=== PATIENT | female | born 1940 | race Caucasian/White ===

== ENCOUNTER → 2017-01-06 | Outpatient (CLI) | payer MEDICARE, OTHER ==
[2016-12-30 13:41] VITALS: BP 169/82
[~2017-01-06] MED LIST: CLIN300C86 PO
--- NOTE | 2017-01-06 15:42 | RAD ---
Bilateral lower extremity arterial ultrasound with VITALY measurements, 01/06/2017: History: Leg pain with nonhealing wound Duplex evaluation of the major arteries in both lower extremities was performed including grayscale, color-flow and spectral Doppler analysis. There are are moderate scattered atherosclerotic plaques bilaterally, some of which are calcified. These are most prominent in the superficial femoral arteries. On the right, the common femoral Doppler waveform is triphasic. Velocity accelerations are present in the mid right superficial femoral artery up to 184 cm/s and in the distal right superficial femoral artery up to 192 cm/s. The findings suggest moderate stenoses at these levels. The distal right superficial femoral and popliteal Doppler waveforms are biphasic. Patent posterior tibial, anterior tibial and peroneal arteries are present in the right lower leg demonstrating biphasic and triphasic Doppler waveforms. The right dorsalis pedis artery is patent with a monophasic Doppler waveform. A normal resting VITALY measurement of 1.01 was obtained on the right. On the left, the common femoral Doppler waveform is triphasic, however, of lower amplitude than on the right. The left superficial femoral Doppler waveforms are all monophasic and dampened. A focal high-grade stenosis was not identified. The left popliteal Doppler waveform is dampened and monophasic. Patent posterior tibial, peroneal and anterior tibial arteries are present in the left lower leg demonstrating monophasic Doppler waveforms. A similar abnormal monophasic waveform is present in the left dorsalis pedis artery. The left resting and VITALY measurement of 0.84 is mildly decreased. IMPRESSION: 1. Moderate atherosclerotic plaquing in both lower extremities. 2. Degradation of the Doppler waveforms at and distal to the superficial femoral artery level on the left, although no focal high-grade stenosis was identified. 3. Mildly decreased left resting VITALY measurement of 0.84. 4. Moderate stenoses in the right superficial femoral artery without significant degradation of the right lower leg Doppler waveforms. 5. Mild degradation of the right dorsalis pedis Doppler waveform. 6. Normal right resting VITALY measurement of 1.01.
--- NOTE | 2017-01-06 15:46 | RAD ---
Left foot, 3 views, 01/06/2017: History: Nonhealing ulcer There is severe patchy bony demineralization. No acute fracture or definite bone destruction is seen. There are mild scattered degenerative changes. Mild cortical irregularity along the medial aspect of the first metatarsal head is probably on a degenerative basis. Arterial calcifications are present. IMPRESSION: 1. Demineralization. 2. No acute bony abnormality is detected.
== END | disposition home or self-care (01) ==
LOC: US 13:36
PROVIDERS: ATTEND Emergency Medicine Undersea and Hyperbaric Medicine
DX: L97.929 Non-pressure chronic ulcer of unspecified part of left lower leg with unspecified severity (principal); L97.919 Non-pressure chronic ulcer of unspecified part of right lower leg with unspecified severity; M79.605 Pain in left leg; M79.604 Pain in right leg
CPT/HCPCS: 73630; 93922; 93925

== ENCOUNTER → 2017-02-17 | Outpatient (CLI) | payer MEDICARE, OTHER ==
[2017-01-12 14:40] VITALS: BP 151/82
== END | disposition home or self-care (01) ==
LOC: PMGWOUND 13:44
PROVIDERS: ATTEND Emergency Medicine Undersea and Hyperbaric Medicine
DX: E11.621 Type 2 diabetes mellitus with foot ulcer (principal); L97.422 Non-pressure chronic ulcer of left heel and midfoot with fat layer exposed; E11.622 Type 2 diabetes mellitus with other skin ulcer; L97.321 Non-pressure chronic ulcer of left ankle limited to breakdown of skin; I10 Essential (primary) hypertension; J44.9 Chronic obstructive pulmonary disease, unspecified; F41.9 Anxiety disorder, unspecified; F17.210 Nicotine dependence, cigarettes, uncomplicated; Z86.73 Personal history of transient ischemic attack (TIA), and cerebral infarction without residual deficits
CPT/HCPCS: 11042; 97597

== ENCOUNTER → 2017-03-03 | Outpatient (CLI) | payer MEDICARE, OTHER ==
[2017-01-12 14:40] VITALS: BP 151/82
[2017-03-03 16:05] LABS: BASO # 0.1 x10^3/uL (0.0-0.2); BASO % 1 % (0-3); EOS % 5 % (0-3); HEMATOCRIT 40.5 % (36.0-47.0); HEMOGLOBIN 13.5 g/dL (12.0-15.5); LYMPH # 1.6 x10^3/uL (1.0-4.8); LYMPH % 20 % (24-48); MEAN CORPUSCULAR HEMOGLOBIN 32 pg (25-35); MEAN CORPUSCULAR HGB CONC 33 g/dL (31-37); MEAN CORPUSCULAR VOLUME 96 fL (79-100); MONO % 8 % (0-9); NEUT % 65 % (31-73); PLATELET COUNT 340 x10^3/uL (140-400); RED CELL DISTRIBUTION WIDTH 14.9 % (11.5-14.5); WHITE BLOOD COUNT 7.8 x10^3/uL (4.0-11.0)
[2017-03-03 16:15] LABS: C-REACTIVE PROTEIN 2.1 mg/L (0-3.3); CALCIUM 9.1 mg/dL (8.5-10.1); CREATININE 0.9 mg/dL (0.6-1.0); GFR 60.9; POTASSIUM 4.6 mmol/L (3.5-5.1)
== END | disposition home or self-care (01) ==
LOC: LAB 15:15
PROVIDERS: ATTEND Emergency Medicine Undersea and Hyperbaric Medicine
DX: L97.523 Non-pressure chronic ulcer of other part of left foot with necrosis of muscle (principal)
CPT/HCPCS: 36415; 80048; 83036; 85027; 85651; 86140

== ENCOUNTER → 2017-03-03 | Outpatient (CLI) | payer MEDICARE, OTHER ==
[2017-01-12 14:40] VITALS: BP 151/82
== END | disposition home or self-care (01) ==
LOC: PMGWOUND 14:18
PROVIDERS: ATTEND Emergency Medicine Undersea and Hyperbaric Medicine
DX: E11.621 Type 2 diabetes mellitus with foot ulcer (principal); L97.513 Non-pressure chronic ulcer of other part of right foot with necrosis of muscle; L97.523 Non-pressure chronic ulcer of other part of left foot with necrosis of muscle; E11.622 Type 2 diabetes mellitus with other skin ulcer; I70.243 Atherosclerosis of native arteries of left leg with ulceration of ankle; L97.321 Non-pressure chronic ulcer of left ankle limited to breakdown of skin; I10 Essential (primary) hypertension; J44.9 Chronic obstructive pulmonary disease, unspecified; F41.9 Anxiety disorder, unspecified; F17.210 Nicotine dependence, cigarettes, uncomplicated; Z86.73 Personal history of transient ischemic attack (TIA), and cerebral infarction without residual deficits
CPT/HCPCS: 11042; 97597

== ENCOUNTER → 2017-03-04 | Outpatient (CLI) | payer MEDICARE, OTHER ==
[2017-01-12 14:40] VITALS: BP 151/82
[~2017-03-04] MED LIST changes: +CONTRAST GIVEN MC PRN; +IOHEXOL 300 MG/ML 75 ML VIAL IV ONE
--- NOTE | 2017-03-05 10:31 | RAD ---
CT of the left foot without contrast, 03/04/2017: History: Foot wound at bunion level No IV contrast was administered for this study due to difficulties with venous access. The patient refused to allow further attempts at IV access. Multiplanar reconstructions were produced. There is patchy bony demineralization. There is a cortical defect in the medial aspect of the first metatarsal head. Some of this margins are sclerotic while others are less clearly defined. There is a nearby skin wound containing gas. There are also gas bubbles in the soft tissues along the dorsal aspect of the first metatarsal head and the first MTP joint. There is generalized increased density in the periarticular soft tissues at the first MTP joint level. There is streaky subcutaneous edema throughout the foot. There is a moderate hallux valgus deformity with degenerative changes at the first MTP joint. There are mild scattered degenerative changes at interphalangeal joints and at the midfoot level. No other definite bone destruction is seen. IMPRESSION: 1. Moderate hallux valgus deformity with degenerative change at the first MTP joint. 2. Soft tissue wound along the medial aspect of the first metatarsal head with periarticular gas bubbles and soft tissue thickening compatible with cellulitis. 3. Cortical defect along the medial aspect of the first metatarsal head which is probably on an arthritic basis, although early osteomyelitis cannot be excluded. PQRS Compliance Statement: One or more of the following individualized dose reduction techniques were utilized for this examination: 1. Automated exposure control 2. Adjustment of the mA and/or kV according to patient size 3. Use of iterative reconstruction technique
== END | disposition home or self-care (01) ==
LOC: CT 14:28
PROVIDERS: ATTEND Emergency Medicine Undersea and Hyperbaric Medicine
DX: S91.302A Unspecified open wound, left foot, initial encounter (principal); W19.XXXA Unspecified fall, initial encounter; Y93.89 Activity, other specified; Y92.89 Other specified places as the place of occurrence of the external cause; Y99.8 Other external cause status
CPT/HCPCS: 73700

== ENCOUNTER 2017-04-07 10:17 | Inpatient (IN) | payer MEDICARE, OTHER ==
[2017-04-07] VITALS (12 sets, daily range): BP systolic 130–196; BP diastolic 59–96
[~2017-04-07] VITALS: Ht 144.8 cm; Wt 50.2 kg
[~2017-04-07 10:17] MED LIST changes: +CLIN300C8 PO; -CLIN300C86 PO; -CONTRAST GIVEN MC PRN; -IOHEXOL 300 MG/ML 75 ML VIAL IV ONE
[2017-04-07 11:27] LABS: BASO # 0.1 x10^3/uL (0.0-0.2); BASO % 1 % (0-3); EOS % 5 % (0-3); HEMATOCRIT 33.4 % (36.0-47.0); HEMOGLOBIN 11.1 g/dL (12.0-15.5); LYMPH # 1.3 x10^3/uL (1.0-4.8); LYMPH % 18 % (24-48); MEAN CORPUSCULAR HEMOGLOBIN 32 pg (25-35); MEAN CORPUSCULAR HGB CONC 33 g/dL (31-37); MEAN CORPUSCULAR VOLUME 96 fL (79-100); MONO % 9 % (0-9); NEUT % 68 % (31-73); PLATELET COUNT 265 x10^3/uL (140-400); RED BLOOD COUNT 3.47 x10^6/uL (3.50-5.40); RED CELL DISTRIBUTION WIDTH 14.4 % (11.5-14.5); WHITE BLOOD COUNT 7.5 x10^3/uL (4.0-11.0)
[2017-04-07] MEDS ORDERED: CLIN300C3 PO (11:34)
[2017-04-07] MEDS ORDERED: LISI10TA2 PO (11:34)
[2017-04-07] MEDS ORDERED: ALBU2.5V14 NEB (11:34)
[2017-04-07] MEDS ORDERED: SIME80TA14 PO (11:34)
[2017-04-07] MEDS ORDERED: BECL8.7A6 IH (11:34)
[2017-04-07] MEDS ORDERED: DOCU100C28 PO (11:34)
[2017-04-07] MEDS ORDERED: LANS30CA66 PO (11:34)
[2017-04-07] MEDS ORDERED: PROC10TA57 PO (11:34)
[2017-04-07] MEDS ORDERED: METO25TA9 PO (11:34)
[2017-04-07] MEDS ORDERED: IPRA4AER IH (11:34)
[2017-04-07] MEDS ORDERED: DIAZ5TAB4 PO (11:34)
[2017-04-07] MEDS ORDERED: ASPI-482 PO (11:34)
[2017-04-07] MEDS ORDERED: OXYC1TAB9 PO (11:34)
[2017-04-07 11:36] LABS: PROTHROMBIN TIME PATIENT 12.5 SEC (11.7-14.0)
[2017-04-07 11:40] LABS: CALCIUM 8.5 mg/dL (8.5-10.1); CREATININE 0.8 mg/dL (0.6-1.0); GFR 69.7; POTASSIUM 4.1 mmol/L (3.5-5.1)
[2017-04-07] MEDS ORDERED: LIDOCAINE 2% 20 ML VIAL. ONE (12:26)
[2017-04-07] MEDS ORDERED: IODIXANOL 320 MG/ML 100 ML VIAL. ONE (12:27)
[2017-04-07] MEDS ORDERED: fentaNYL PF VIAL 100 MCG/2 ML VIAL ONE ×2 (12:38→13:19)
[2017-04-07] MEDS ORDERED: MIDAZOLAM HCL/PF 2 MG/2 ML VIAL. ONE ×3 (12:38→14:06)
[2017-04-07] MEDS ORDERED: fentaNYL PF VIAL 100 MCG/2 ML VIAL IV ONE ×2 (13:00→14:45)
[2017-04-07] MEDS ORDERED: NITROGLYCERIN 4 MG/20 ML SYRINGE for CATH LAB. ONE ×2 (13:00→13:16)
[2017-04-07] MEDS ORDERED: CONTRAST GIVEN MC PRN (13:00)
[2017-04-07] MEDS ORDERED: LIDOCAINE 2% 20 ML VIAL. IJ ONE (13:00)
[2017-04-07] MEDS ORDERED: MIDAZOLAM HCL/PF 2 MG/2 ML VIAL. IV ONE (13:00)
[2017-04-07] MEDS ORDERED: IODIXANOL 320 MG/ML 100 ML VIAL. IART ONE (13:00)
[2017-04-07] MEDS ORDERED: HEPARIN for IV BOLUS 10,000 UNIT/10 ML VIAL. ONE (13:08)
[2017-04-07] MEDS ORDERED: dilTIAZem IV PUSH 25 MG/5 ML VIAL ONE (13:16)
[2017-04-07] MEDS ORDERED: NITROGLYCERIN 200 MCG/2 ML SYRINGE FOR CATH/VASC LAB. IART ONE (13:30)
[2017-04-07] MEDS ORDERED: HEPARIN for IV BOLUS 10,000 UNIT/10 ML VIAL. IV ONE (13:45)
--- NOTE | 2017-04-07 14:42 | PDOC ---
MODERATE SEDATION ASSESSMENT RISKS/ALTERNATIVES Risks/Alternatives Risks and alternatives of this type of sedation and procedure discussed with: RISK/ALTERNATIVES: Patient H & P ON CHART H & P H & P on chart and reviewed for co-morbid conditions and appropriate labs. H&P ON CHART: Yes STATUS PREG STATUS ASSESSED: N/A MEDS/ALLERGIES REVIEWED Meds/Allergies Reviewed Medications and Allergies including time and route of recently administered narcotics and sedatives. MEDS/ALLERGIES REVIEWED: Yes ASA RATING ASA RATING: II AIRWAY ASSESSMENT Airway Assessment Airway patency, oral function limitations, presence of caps, crowns, dentures, partials, and ability to extend neck assessed. AIRWAY ASSESSMENT: Yes MALLAMPATI SCORE MALLAMPATI SCORE: II PRE-SEDATION ASSESSMENT PRE-SEDATION ASSESSMENT: Yes BHAVIK DUNCAN MD April 07, 2017 14:42
[2017-04-07] MEDS ORDERED: CLOPIDOGREL BISULFATE 75 MG TABLET ONE (14:44)
[2017-04-07] MEDS ORDERED: ACETAMINOPHEN 325 MG TABLET. PO PRN (14:45)
[2017-04-07] MEDS ORDERED: NITROGLYCERIN SUBLINGUAL 0.4 MG BOTTLE OF 25. SL PRN (14:45)
[2017-04-07] MEDS ORDERED: CLOPIDOGREL BISULFATE 75 MG TABLET PO ONE (14:45)
[2017-04-07] MEDS ORDERED: hydrALAZINE 20 MG/ML VIAL. IVP PRN (16:15)
[2017-04-07] MEDS ORDERED: SIMETHICONE 80 MG TAB.CHEW PO PRN (16:15)
[2017-04-07] MEDS: MORPHINE SULFATE 2 MG/ML DISP.SYRIN. IV PRN (16:18)
[2017-04-07] MEDS: IV 1/2 NORMAL SALINE 1,000 ML IV SCH ×2 (16:21→22:55)
[2017-04-07] MEDS ORDERED: NON FORMULARY ITEM (Albuterol Sulfate (Albuterol Sulfate Conc Neb Soln) 1 VIAL) NEB SCH (18:00)
[2017-04-07] MEDS: ONDANSETRON PF 4 MG/2 ML VIAL. IV PRN (18:00)
[2017-04-07] MEDS: MORPHINE SULFATE 4 MG/ML DISP.SYRIN. IV PRN (18:52)
[2017-04-07] MEDS: ALBUTEROL SULFATE 2.5 MG/3 ML NEBU. NEB SCH ×2 (20:00→20:10)
[2017-04-07] MEDS: METOPROLOL SUCC 24HR ER 25 MG TAB.ER.24H. PO SCH (22:54)
[2017-04-07] MEDS: diazePAM 5 MG TABLET PO SCH (22:55)
[2017-04-07] MEDS: oxyCODONE/APAP 10/325 1 TAB TABLET PO SCH (22:56)
[2017-04-08] VITALS (7 sets, daily range): BP systolic 111–178; BP diastolic 53–75
[2017-04-08 04:36] LABS: CALCIUM 8.2 mg/dL (8.5-10.1); CREATININE 0.8 mg/dL (0.6-1.0); GFR 69.7; POTASSIUM 4.1 mmol/L (3.5-5.1)
[2017-04-08] MEDS: PANTOPRAZOLE 40 MG TABLET.DR. PO SCH (06:47)
[2017-04-08] MEDS: oxyCODONE/APAP 10/325 1 TAB TABLET PO SCH ×4 (06:49→12:55)
[2017-04-08] MEDS ORDERED: CLOPIDOGREL BISULFATE 75 MG TABLET PO SCH (08:00)
[2017-04-08] MEDS: ALBUTEROL SULFATE 2.5 MG/3 ML NEBU. NEB SCH ×2 (08:29→12:00)
[2017-04-08] MEDS ORDERED: LISINOPRIL 10 MG TABLET PO SCH ×2 (09:00→21:00)
[2017-04-08] MEDS ORDERED: DOCUSATE SODIUM 100 MG CAPSULE. PO SCH ×2 (09:00→21:00)
[2017-04-08] MEDS ORDERED: ASPIRIN ENTERIC COATED 81 MG TABLET.DR. PO SCH ×2 (09:00→21:00)
[2017-04-08] MEDS: METOPROLOL SUCC 24HR ER 25 MG TAB.ER.24H. PO SCH (09:08)
[2017-04-08] MEDS: diazePAM 5 MG TABLET PO SCH ×3 (09:08→21:25)
[2017-04-08] MEDS: MORPHINE SULFATE 2 MG/ML DISP.SYRIN. IV PRN ×2 (09:10→18:32)
[2017-04-08] MEDS: ONDANSETRON PF 4 MG/2 ML VIAL. IV PRN (09:52)
[2017-04-08] MEDS: IV 1/2 NORMAL SALINE 1,000 ML IV SCH (11:00)
--- NOTE | 2017-04-08 11:03 | PDOC ---
CARDIO Progress Notes Date and Time Date of Service 04/08/2017 Time of Evaluation 1000 Subjective Subjective: No Chest Pain, No shortness of breath, No Palpitations, No Dizziness, Other (coughing more productive yellowish, intermittent nausea) Vitals Vitals Vital Signs Date Time Temp Pulse Resp B/P (MAP) Pulse Ox O2 Delivery O2 Flow Rate FiO2 04/08/17 09:40 18 Nasal Cannula 2.0 04/08/17 09:08 77 136/60 04/08/17 08:31 96 04/08/17 07:00 98.3 98.3 Weight Weight [ ] Input and Output Intake and Output Intake and Output 04/08/17 07:00 Output Total 0 ml Balance 0 ml Output Urine Total 0 ml # Voids 3 Laboratory Labs Laboratory Tests Test 04/07/17 11:20 04/08/17 03:50 White Blood Count 7.5 x10^3/uL (4.0-11.0) Red Blood Count 3.47 x10^6/uL (3.50-5.40) Hemoglobin 11.1 g/dL (12.0-15.5) Hematocrit 33.4 % (36.0-47.0) Mean Corpuscular Volume 96 fL (79-100) Mean Corpuscular Hemoglobin 32 pg (25-35) Mean Corpuscular Hemoglobin Concent 33 g/dL (31-37) Red Cell Distribution Width 14.4 % (11.5-14.5) Platelet Count 265 x10^3/uL (140-400) Neutrophils (%) (Auto) 68 % (31-73) Lymphocytes (%) (Auto) 18 % (24-48) Monocytes (%) (Auto) 9 % (0-9) Eosinophils (%) (Auto) 5 % (0-3) Basophils (%) (Auto) 1 % (0-3) Neutrophils # (Auto) 5.1 x10^3uL (1.8-7.7) Lymphocytes # (Auto) 1.3 x10^3/uL (1.0-4.8) Monocytes # (Auto) 0.6 x10^3/uL (0.0-1.1) Eosinophils # (Auto) 0.4 x10^3/uL (0.0-0.7) Basophils # (Auto) 0.1 x10^3/uL (0.0-0.2) Prothrombin Time 12.5 SEC (11.7-14.0) Prothromb Time International Ratio 1.0 (0.8-1.1) Sodium Level 127 mmol/L (136-145) 128 mmol/L (136-145) Potassium Level 4.1 mmol/L (3.5-5.1) 4.1 mmol/L (3.5-5.1) Chloride Level 94 mmol/L (98-107) 94 mmol/L (98-107) Carbon Dioxide Level 25 mmol/L (21-32) 25 mmol/L (21-32) Anion Gap 8 (6-14) 9 (6-14) Blood Urea Nitrogen 17 mg/dL (7-20) 12 mg/dL (7-20) Creatinine 0.8 mg/dL (0.6-1.0) 0.8 mg/dL (0.6-1.0) Estimated GFR (Cockcroft-Gault) 69.7 69.7 Glucose Level 86 mg/dL (70-99) 80 mg/dL (70-99) Calcium Level 8.5 mg/dL (8.5-10.1) 8.2 mg/dL (8.5-10.1) Physical Exam HEENT: Neck Supple W Full Motion Chest: Symmetric LUNGS: Other Heart: S1S2, RRR (SR) Abdomen: Soft N/T Extremities: No Edema, No Calf Tenderness Neurology: alert, oriented, follow commands Other Exams right groin arteriotomy site intact, no swelling or erythema. Neurovascular status intact Assessment Assessment 1. PAD: S/P multivessel CHEMICAL TECHNICIAN/stent to LLE, final report pending. Stable, tolerated procedure well. 2. GERD: likely exacerbated by sipped meals. 3. COPD: since 1996, home O2 at hs. Presently with diffuse wheeze, does not follow any pulmonary, managed by outpt PCP 4. Hyponatremia: Na 128 Recommendations 1. Restart home breathing treatments, and will monitor today 2. Will ensure PO status and food tolerance 3. Pt guaranteed ex to stay with her when discharge to home 4. If nausea and wheezing improved by this afternoon then will anticipate DC today otherwise tomorrow. 5. PCXR today, DAPT 6. Start on PPI and secondary prevention 7. Consult pulmonary 8. 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
[2017-04-08] MEDS ORDERED: PANTOPRAZOLE 40 MG TABLET.DR. PO SCH (11:30)
[2017-04-08] MEDS: IPRATRPIUM/ALBUTEROL 0.5/2.5MG 3 ML NEBU. NEB SCH ×3 (11:58→20:14)
[2017-04-08] MEDS ORDERED: AZITHROMYCIN 250 MG TABLET. PO ONE (12:30)
--- NOTE | 2017-04-08 12:30 | CONS ---
DATE OF CONSULTATION: ATTENDING PHYSICIAN: Dr. Casas. REASON FOR CONSULTATION: COPD. HISTORY OF PRESENT ILLNESS: The patient is a pleasant 76-year-old female who has been a smoker from age 15 until now. She smokes 1 pack which would last 3 days. She was hospitalized for peripheral vascular disease and had stents to left lower extremity. I have been asked to see her for evaluation of her COPD. The patient states she has been coughing up yellow sputum. No fever, no chills. She states she always feels cold. She denies any significant exertional dyspnea. She uses oxygen 2 liters at night time, but none during the day. No chest pains. No history of pulmonary embolism. There is no chest x-ray done yet. I have been asked to see her for further evaluation. PAST MEDICAL HISTORY: History of COPD, unknown FEV1, could be severe with ongoing tobaccoism. PAST SURGICAL HISTORY: Recent multiple stents to the left lower extremity. REVIEW OF SYSTEMS: Twelve-point system obtained. Pertinent positives discussed in my history of present illness, otherwise noncontributory. All systems that were negative were reviewed as well. ALLERGIES: MULTIPLE ANTIBIOTICS, INCLUDING CEPHALOSPORIN, CEPHALEXIN, CIPRO AND ALSO DIPHENHYDRAMINE, KETOROLAC, LEVOFLOXACIN, MUSHROOMS, PROPOXYPHENE AND . SOCIAL HISTORY: Smoking since age 15, 1 pack would last 3 days. PHYSICAL EXAMINATION: VITAL SIGNS: Stable, afebrile, pulse ox 95% on room air. NECK: Supple. LUNGS: Diminished breath sounds posteriorly, anterior wheezing. CARDIOVASCULAR: Regular rate and rhythm. ABDOMEN: Soft. EXTREMITIES: With no pitting edema. LABORATORY DATA: Reviewed. White cell count 7.5, hemoglobin 11.1, platelets are 265, BUN 12, creatinine 0.8. IMPRESSION: 1. Mild chronic obstructive pulmonary disease exacerbation in a patient who has smoked since age 15 and still smokes. 2. Acute bronchitis. We will need a chest x-ray to rule out any definite pneumonia. 3. Mild hyponatremia, we will clinically follow. 4. Peripheral vascular disease, status post multiple stents to the left lower extremity. RECOMMENDATIONS: 1. Continue DuoNeb. 2. Continue with Pulmicort. She takes QVAR at home, which is not available in the hospital. 3. Add empiric antibiotic, Zithromax. That really works well for her. 4. Follow chest x-ray and any abnormalities will be evaluated. 5. Monitor sodium level. 6. Follow Cardiology recommendation. 7. Discussed with RN. We will follow along with you. VINEET ANDERSON MD DR: KRISHNA/gogo JOB#: [id number] / [id number] TONIO
[2017-04-08] MEDS ORDERED: NON FORMULARY ITEM (Ipratropium/Albuterol Sulfate (Combivent Respimat Inhal) 2 INH) IH SCH (13:00)
[2017-04-08 13:07] LABS: CALCIUM 8.5 mg/dL (8.5-10.1); CREATININE 0.7 mg/dL (0.6-1.0); GFR 81.4; POTASSIUM 4.3 mmol/L (3.5-5.1)
--- NOTE | 2017-04-08 13:16 | RAD ---
Indication wheezing. Cough. A single view of the chest was obtained. Comparison is made to an examination 10/07/2013. There is mild cardiomegaly similar to the previous exam. There is perhaps very slight pulmonary vascular congestion. Retrocardiac air likely reflects a hiatus hernia. Kyphoplasty changes are noted in the lower thoracic spine. A consolidated pneumonia is not seen. IMPRESSION: Mild enlargement of the cardiac silhouette. Suspect very mild pulmonary vascular congestion. Probable hiatus hernia. No focal consolidated pneumonia seen
[2017-04-08] MEDS ORDERED: FUROSEMIDE 40 MG/4 ML VIAL. IVP ONE (14:00)
[2017-04-08] MEDS ORDERED: oxyCODONE/APAP 10/325 1 TAB TABLET PO PRN (14:00)
[2017-04-08] MEDS ORDERED: ALBUTEROL SULFATE 2.5 MG/3 ML NEBU. NEB PRN (18:00)
[2017-04-08] MEDS: BUDESONIDE 0.5 MG/2 ML NEBU. NEB SCH (20:14)
[2017-04-08] MEDS ORDERED: BECLOMETHASONE DIPROPIONATE IH SCH (21:00)
[2017-04-08] MEDS: METOPROLOL TART IMMED RELEASE 25 MG TABLET. PO SCH (21:25)
[2017-04-08] MEDS: MORPHINE SULFATE 4 MG/ML DISP.SYRIN. IV PRN (23:24)
[2017-04-09 03:11] VITALS: BP 124/62
[2017-04-09] MEDS: MORPHINE SULFATE 4 MG/ML DISP.SYRIN. IV PRN (06:31)
[2017-04-09] MEDS: BUDESONIDE 0.5 MG/2 ML NEBU. NEB SCH (06:35)
[2017-04-09] MEDS: IPRATRPIUM/ALBUTEROL 0.5/2.5MG 3 ML NEBU. NEB SCH (06:35)
[2017-04-09 07:00] VITALS: BP 124/59
[2017-04-09] MEDS ORDERED: AZITHROMYCIN 250 MG TABLET. PO SCH (09:00)
[2017-04-09] MEDS: diazePAM 5 MG TABLET PO SCH (09:06)
[2017-04-09] MEDS: PANTOPRAZOLE 40 MG TABLET.DR. PO SCH (09:07)
[2017-04-09] MEDS: METOPROLOL TART IMMED RELEASE 25 MG TABLET. PO SCH (09:07)
[2017-04-09] MEDS ORDERED: CLOP75TA PO (09:44)
[2017-04-09] MEDS ORDERED: CLOPIDOGREL BISULFATE 75 MG TABLET PO SCH (09:45)
--- NOTE | 2017-04-09 09:47 | PDOC3 ---
TARUN ORNELAS OCEAN IMPORT REPRESENTATIVE 04/09/17 0947: Discharge Summary Visit Information Date of Admission: April 07, 2017 Date of Discharge: Apr 09, 2017 Admitting Diagnosis Comment: 1. PAD with non-healing left foot wounds 2. HTN, benign essential 3. COPD 4. tobacco abuse Final Diagnosis 1. PAD with non-healing left foot wounds 2. HTN, benign essential 3. COPD with acute bronchitis 4. tobacco abuse 5. hyponatremia 6. CHF, acute, mild, LV function undocumented Brief Hospital Course Allergies Allergies Coded Allergies Type Severity Reaction Last Updated Verified Cephalosporins Allergy Severe Anaphylaxis 04/07/17 Yes propoxyphene Allergy Severe Anaphylaxis 04/08/17 Yes cephalexin Allergy Intermediate Itching 04/08/17 Yes ciprofloxacin Allergy Intermediate 04/08/17 Yes ketorolac Allergy Intermediate 04/08/17 Yes levofloxacin Allergy Intermediate 04/08/17 Yes mushroom Allergy Intermediate Itching 04/08/17 Yes sumatriptan Allergy Intermediate 04/08/17 Yes diphenhydramine Allergy Mild Anxiety 04/08/17 Yes Vital Signs Vital Signs Date Time Temp Pulse Resp B/P (MAP) Pulse Ox O2 Delivery O2 Flow Rate FiO2 04/09/17 09:07 72 124/59 04/09/17 09:02 Room Air 04/09/17 07:00 98.5 20 95 2.0 98.5 Lab Results Laboratory Tests Test 04/07/17 11:20 04/08/17 03:50 04/08/17 12:45 White Blood Count 7.5 x10^3/uL (4.0-11.0) Red Blood Count 3.47 x10^6/uL (3.50-5.40) Hemoglobin 11.1 g/dL (12.0-15.5) Hematocrit 33.4 % (36.0-47.0) Mean Corpuscular Volume 96 fL (79-100) Mean Corpuscular Hemoglobin 32 pg (25-35) Mean Corpuscular Hemoglobin Concent 33 g/dL (31-37) Red Cell Distribution Width 14.4 % (11.5-14.5) Platelet Count 265 x10^3/uL (140-400) Neutrophils (%) (Auto) 68 % (31-73) Lymphocytes (%) (Auto) 18 % (24-48) Monocytes (%) (Auto) 9 % (0-9) Eosinophils (%) (Auto) 5 % (0-3) Basophils (%) (Auto) 1 % (0-3) Neutrophils # (Auto) 5.1 x10^3uL (1.8-7.7) Lymphocytes # (Auto) 1.3 x10^3/uL (1.0-4.8) Monocytes # (Auto) 0.6 x10^3/uL (0.0-1.1) Eosinophils # (Auto) 0.4 x10^3/uL (0.0-0.7) Basophils # (Auto) 0.1 x10^3/uL (0.0-0.2) Prothrombin Time 12.5 SEC (11.7-14.0) Prothromb Time International Ratio 1.0 (0.8-1.1) Sodium Level 127 mmol/L (136-145) 128 mmol/L (136-145) 124 mmol/L (136-145) Potassium Level 4.1 mmol/L (3.5-5.1) 4.1 mmol/L (3.5-5.1) 4.3 mmol/L (3.5-5.1) Chloride Level 94 mmol/L (98-107) 94 mmol/L (98-107) 91 mmol/L (98-107) Carbon Dioxide Level 25 mmol/L (21-32) 25 mmol/L (21-32) 25 mmol/L (21-32) Anion Gap 8 (6-14) 9 (6-14) 8 (6-14) Blood Urea Nitrogen 17 mg/dL (7-20) 12 mg/dL (7-20) 13 mg/dL (7-20) Creatinine 0.8 mg/dL (0.6-1.0) 0.8 mg/dL (0.6-1.0) 0.7 mg/dL (0.6-1.0) Estimated GFR (Cockcroft-Gault) 69.7 69.7 81.4 Glucose Level 86 mg/dL (70-99) 80 mg/dL (70-99) 80 mg/dL (70-99) Calcium Level 8.5 mg/dL (8.5-10.1) 8.2 mg/dL (8.5-10.1) 8.5 mg/dL (8.5-10.1) TM-Ews-V-Type Natriuretic Peptide 1312 pg/mL (0-449) Laboratory Tests Test 04/08/17 12:45 Sodium Level 124 mmol/L (136-145) Potassium Level 4.3 mmol/L (3.5-5.1) Chloride Level 91 mmol/L (98-107) Carbon Dioxide Level 25 mmol/L (21-32) Anion Gap 8 (6-14) Blood Urea Nitrogen 13 mg/dL (7-20) Creatinine 0.7 mg/dL (0.6-1.0) Estimated GFR (Cockcroft-Gault) 81.4 Glucose Level 80 mg/dL (70-99) Calcium Level 8.5 mg/dL (8.5-10.1) RJ-Uus-X-Type Natriuretic Peptide 1312 pg/mL (0-449) Brief Hospital Course Ms. Michele is a 76 old female previous evaluated in the office for PAD with non -healing wounds of the left foot and a need to undergo bunionectomy with podiatry. Bilateral arterial Duplex had demonstrated at least moderate bilateral disease. Abdominal aortogram with run-off was advised for further evaluation and this was completed 04/07/2017. See procedure report for details. DAPT until seen in the office. Discharge delayed 24 hours to address acute bronchitis with pulmonary consult with Dr. Erickson Giles. CXR demonstrated mild pulmonary vascular congestion, however, patient declined IV furosemide and further evaluation with echocardiogram. CXR did not demonstrate pneumonia. No events overnight and patient reports breathing at baseline status. Hyponatremic at about 124 - follow up with PCP recommended. Discharge Information Condition at Discharge: Stable Follow Up: Weeks ([address] Duncan; Dr. Montaño of podiatry as scheduled ; PCP in 7 - 10 days to address hyponatremia) Disposition/Orders: D/C to Home (patient has both day and night time assistance through an agency) Scheduled Albuterol Sulfate (Albuterol Sulfate Conc Neb Soln), 1 VIAL NEB Q6HRS, (Reported ) Aspirin (Aspir 81), 1 TAB PO DAILY, (Reported) Azithromycin (Zithromax), 250 MG PO DAILY, (Reported) Beclomethasone Dipropionate (Qvar 80MCG Inhaler), 2 PUFF IH BID, (Reported) Clopidogrel Bisulfate (Clopidogrel), 1 TAB PO DAILY Diazepam (Diazepam), 5 MG PO TID, (Reported) Docusate Sodium (Docusate Sodium), 1 CAP PO DAILY, (Reported) Ipratropium/Albuterol Sulfate (Combivent Respimat Inhal), 2 INH IH QID, ( Reported) Lansoprazole (Prevacid), 1 CAP PO DAILY, (Reported) Lisinopril (Lisinopril), 1 TAB PO DAILY, (Reported) Metoprolol Succinate (Metoprolol Succinate ( Xl )), 1 TAB PO BID, (Reported) Oxycodone Hcl/Acetaminophen (Oxycodone-Acetaminophen 10-325), 1 TAB PO Q4HRS, ( Reported) Miscellaneous Medications Prochlorperazine Maleate (Compazine), 10 MG PO, (Reported) Simethicone (Simethicone), 80 MG PO, (Reported) Discontinued Medications Clindamycin Hcl (Clindamycin Hcl), 300 MG PO QID Clindamycin Hcl (Cleocin Hcl), 300 MG PO QID, (Reported) Patient Instructions Patient Instructions GENERAL INSTRUCTIONS: 1. Your dressing should be removed prior to leaving the hospital. 2. It is OK to shower the day after your procedure. 3. If you received stents, be sure to carry your stent information card with you in your wallet/purse at all times. 4. Call the office immediately at [phone] if you notice any fever or if there is redness, worsening tenderness/pain, increased bruising, or drainage from the puncture site. 5. Should you have bleeding from the site, lie down immediately & put pressure on the site. The pressure should be hard enough to stop the bleeding. Have the nearest person call 911. DO NOT try to drive to the ER with active bleeding. 6. If you notice a change in color, coolness to touch, or loss of feeling in the affected extremity, come to the emergency room. Please have someone drive you or call 911 if no one is available. DO NOT drive yourself. 7. If you normally take glucophage (metformin), please do not take this medicine for 48 hours following your procedure. 8. DO NOT STOP TAKING YOUR PLAVIX OR ASPIRIN UNLESS IT IS CLEARED BY A METAL CUT OFF SAW TENDER OF YOUR PROCUREMENT INTERNSHIP AT OUR OFFICE. 9. QUIT SMOKING: the [place] [employer], [place] [employer], & [place] [employer] have cessation resources available on their websites 10. Please have someone available to drive you home from the hospital as you may be limited by sedation medications given during the procedure. Femoral (Groin) access: 1. Do no lifting, pushing, pulling, bending, stooping, or recurrent stair climbing for 3 days following your procedure. 2. Once past the first 3 days, do not do any HEAVY exertion or lifting for one week following the procedure. No gym workouts, running, lifting greater than a gallon of milk, etc 3. Do not submerge in bath or pool for one week. OK to drive 3 days following your procedure, but if going long distance, do not go alone & take hourly breaks to get out of car and walk around. Call the office at [phone] for any questions or concerns. BHAVIK DUNCAN MD 04/10/17 1044: Discharge Summary Brief Hospital Course Brief Hospital Course Patient seen and examined 04/09/17. Agree with FIREBRICK LAYER HELPER's assessment and plan. s/p atherectomy/SENIOR CONTRACT SPECIALIST to left SFA, SENIOR CONTRACT SPECIALIST/stent to left anterior tibial and SENIOR CONTRACT SPECIALIST to left peroneal arteries for nonhealing wound left leg and severe peripheral vascular disease. Acute bronchitis improved. Patient was advised to follow-up with PCP for her hyponatremia. We will consider staged SENIOR CONTRACT SPECIALIST to right lower extremity and possibly left renal artery at a later date. Discharge Information Scheduled Albuterol Sulfate (Albuterol Sulfate Conc Neb Soln), 1 VIAL NEB Q6HRS, (Reported ) Aspirin (Aspir 81), 1 TAB PO DAILY, (Reported) Azithromycin (Zithromax), 250 MG PO DAILY, (Reported) Beclomethasone Dipropionate (Qvar 80MCG Inhaler), 2 PUFF IH BID, (Reported) Clopidogrel Bisulfate (Clopidogrel), 1 TAB PO DAILY Diazepam (Diazepam), 5 MG PO TID, (Reported) Docusate Sodium (Docusate Sodium), 1 CAP PO DAILY, (Reported) Ipratropium/Albuterol Sulfate (Combivent Respimat Inhal), 2 INH IH QID, ( Reported) Lansoprazole (Prevacid), 1 CAP PO DAILY, (Reported) Lisinopril (Lisinopril), 1 TAB PO DAILY, (Reported) Metoprolol Succinate (Metoprolol Succinate ( Xl )), 1 TAB PO BID, (Reported) Oxycodone Hcl/Acetaminophen (Oxycodone-Acetaminophen 10-325), 1 TAB PO Q4HRS, ( Reported) Miscellaneous Medications Prochlorperazine Maleate (Compazine), 10 MG PO, (Reported) Simethicone (Simethicone), 80 MG PO, (Reported) Discontinued Medications Clindamycin Hcl (Clindamycin Hcl), 300 MG PO QID Clindamycin Hcl (Cleocin Hcl), 300 MG PO QID, (Reported) TARUN ORNELAS APRN Apr 09, 2017 09:47 BHAVIK DUNCAN MD Apr 10, 2017 10:44
[2017-04-09 11:00] VITALS: BP 94/54
[2017-04-09] MEDS ORDERED: AZIT250T PO (11:13)
--- NOTE | 2017-04-09 11:24 | PDOC ---
PULMONARY PROGRESS NOTES Subjective FEELS BETTER Vitals Vital Signs Date Time Temp Pulse Resp B/P (MAP) Pulse Ox O2 Delivery O2 Flow Rate FiO2 04/09/17 09:07 72 124/59 04/09/17 09:02 Room Air 04/09/17 08:00 2.0 04/09/17 07:00 98.5 20 95 98.5 General: Alert, No acute distress Lungs: Clear Cardiovascular: S1 Abdomen: Soft Neuro Exam: Alert Extremities: No Edema Skin: Warm Labs Laboratory Tests Test 04/07/17 11:20 04/08/17 03:50 04/08/17 12:45 White Blood Count 7.5 x10^3/uL (4.0-11.0) Red Blood Count 3.47 x10^6/uL (3.50-5.40) Hemoglobin 11.1 g/dL (12.0-15.5) Hematocrit 33.4 % (36.0-47.0) Mean Corpuscular Volume 96 fL (79-100) Mean Corpuscular Hemoglobin 32 pg (25-35) Mean Corpuscular Hemoglobin Concent 33 g/dL (31-37) Red Cell Distribution Width 14.4 % (11.5-14.5) Platelet Count 265 x10^3/uL (140-400) Neutrophils (%) (Auto) 68 % (31-73) Lymphocytes (%) (Auto) 18 % (24-48) Monocytes (%) (Auto) 9 % (0-9) Eosinophils (%) (Auto) 5 % (0-3) Basophils (%) (Auto) 1 % (0-3) Neutrophils # (Auto) 5.1 x10^3uL (1.8-7.7) Lymphocytes # (Auto) 1.3 x10^3/uL (1.0-4.8) Monocytes # (Auto) 0.6 x10^3/uL (0.0-1.1) Eosinophils # (Auto) 0.4 x10^3/uL (0.0-0.7) Basophils # (Auto) 0.1 x10^3/uL (0.0-0.2) Prothrombin Time 12.5 SEC (11.7-14.0) Prothromb Time International Ratio 1.0 (0.8-1.1) Sodium Level 127 mmol/L (136-145) 128 mmol/L (136-145) 124 mmol/L (136-145) Potassium Level 4.1 mmol/L (3.5-5.1) 4.1 mmol/L (3.5-5.1) 4.3 mmol/L (3.5-5.1) Chloride Level 94 mmol/L (98-107) 94 mmol/L (98-107) 91 mmol/L (98-107) Carbon Dioxide Level 25 mmol/L (21-32) 25 mmol/L (21-32) 25 mmol/L (21-32) Anion Gap 8 (6-14) 9 (6-14) 8 (6-14) Blood Urea Nitrogen 17 mg/dL (7-20) 12 mg/dL (7-20) 13 mg/dL (7-20) Creatinine 0.8 mg/dL (0.6-1.0) 0.8 mg/dL (0.6-1.0) 0.7 mg/dL (0.6-1.0) Estimated GFR (Cockcroft-Gault) 69.7 69.7 81.4 Glucose Level 86 mg/dL (70-99) 80 mg/dL (70-99) 80 mg/dL (70-99) Calcium Level 8.5 mg/dL (8.5-10.1) 8.2 mg/dL (8.5-10.1) 8.5 mg/dL (8.5-10.1) CF-Nmt-I-Type Natriuretic Peptide 1312 pg/mL (0-449) Laboratory Tests Test 04/08/17 12:45 Sodium Level 124 mmol/L (136-145) Potassium Level 4.3 mmol/L (3.5-5.1) Chloride Level 91 mmol/L (98-107) Carbon Dioxide Level 25 mmol/L (21-32) Anion Gap 8 (6-14) Blood Urea Nitrogen 13 mg/dL (7-20) Creatinine 0.7 mg/dL (0.6-1.0) Estimated GFR (Cockcroft-Gault) 81.4 Glucose Level 80 mg/dL (70-99) Calcium Level 8.5 mg/dL (8.5-10.1) AC-Elm-E-Type Natriuretic Peptide 1312 pg/mL (0-449) Medications Active Scripts Medications Dose Route/Sig Max Daily Dose Days Date Category Zithromax (Azithromycin) 250 Mg Tablet 250 Mg PO DAILY 3 04/09/17 Reported Clopidogrel (Clopidogrel Bisulfate) 75 Mg Tablet 1 Tab PO DAILY 04/09/17 Rx Simethicone 80 Mg Tab.chew 80 Mg PO 04/07/17 Reported Compazine (Prochlorperazine Maleate) 10 Mg Tablet 10 Mg PO 04/07/17 Reported Oxycodone-Acetaminophen 10-325 (Oxycodone Hcl/Acetaminophen) 1 Each Tablet 1 Tab PO Q4HRS 04/07/17 Reported Metoprolol Succinate ( Xl ) (Metoprolol Succinate) 25 Mg Tab.er.24h 1 Tab PO BID 04/07/17 Reported Lisinopril 10 Mg Tablet 1 Tab PO DAILY 04/07/17 Reported Prevacid (Lansoprazole) 30 Mg Capsule. 1 Cap PO DAILY 04/07/17 Reported Combivent Respimat Inhal (Ipratropium/Albuterol Sulfate) 4 Gm Aer.w.adap 2 Inh IH QID 04/07/17 Reported Docusate Sodium 100 Mg Capsule 1 Cap PO DAILY 04/07/17 Reported Diazepam 5 Mg Tablet 5 Mg PO TID 04/07/17 Reported Qvar 80MCG Inhaler (Beclomethasone Dipropionate) 8.7 Gm Aer.w.adap 2 Puff IH BID 04/07/17 Reported Aspir 81 (Aspirin) 81 Mg Tablet. 1 Tab PO DAILY 04/07/17 Reported Albuterol Sulfate Conc Neb Soln (Albuterol Sulfate) 2.5 Mg/0.5 Ml Vial.neb 1 Vial NEB Q6HRS 04/07/17 Reported Impression . 1. Mild chronic obstructive pulmonary disease exacerbation in a patient who has smoked since age 15 and still smokes. 2. Acute bronchitis. claer chest x-ray 3. Mild hyponatremia, 4. Peripheral vascular disease, status post multiple stents to the left lower extremity. Plan . 1. Continue DuoNeb. 2. Continue with Pulmicort. She takes QVAR at home, which is not available in the hospital. 3. Zithromax. 5. Monitor sodium level. 6. Follow Cardiology recommendation. 7. Discussed with RN. We will follow along with you. VINEET ANDERSON MD Apr 09, 2017 11:24
--- NOTE | 2017-04-09 13:38 | CARD ---
APPROVED REPORT Patient StatusOUT-PATIENT Senior Caregiver: Mary Carrera RT (R) Procedure(s) performed: 1. Aortogram with bilateral lower extremity runoff 2. Successful orbital atherectomy/WAIT STAFF to left superficial femoral artery 3. Successful balloon WAIT STAFF/stent placement to left anterior tibial artery 4. Successful balloon WAIT STAFF to left peroneal artery INDICATION FOR PROCEDURE The indication(s) include : Peripheral vascular disease with claudication, nonhealing wound left foot . PROCEDURE NARRATIVE After explaining the risks, benefits and alternative options, informed consent was obtained from patti ent. Patient was brought to the cardiac Timber Inspector and both her groins were prepped and draped in the u sual fashion. 10 mL of 2% lidocaine was infiltrated into the skin and subcutaneous tissues of the rig ht groin for local anesthesia. Arterial access was obtained in the right common femoral artery and 5 Indian sheath was inserted. 5 Indian pigtail catheter was used to perform aortogram with bilateral lo wer extremity runoff. A 5 Indian crossover catheter was used to perform selective angiography of the left lower extremity. Contrast injections were performed through the sheath in the right groin for ri t lower extremity angiography. The following findings were noted. FINDINGS 1. No significant stenosis involving distal descending aorta and bilateral common iliac arteries. 2. Incidentally, the left renal artery was found to have 90% proximal segment stenosis on the aortogr am. The right renal artery was not well visualized due to lack of selective injection. 3. No significant stenosis involving left external iliac and common femoral arteries. The right exte rnal iliac artery appeared to show 70% stenosis = however, this could not be well delineated due to t he presence of sheath in the right groin. We will plan for further evaluation when patient comes for right lower extremity intervention. 4. The right superficial femoral artery showed tandem lesions of 80% and 70% stenosis severity in th e midsegment. The left superficial femoral artery showed 90% stenosis in the midsegment. 5. The popliteal arteries bilaterally did not show any significant stenosis. 6. There is three-vessel runoff below the knee in the right lower extremity. The right anterior tibi al artery appeared to show severe diffuse disease mid to distal segments. The distal segments of the other below the knee vessels were not well-visualized. 7. There is two-vessel runoff below the knee left lower extremity. The left posterior tibial arterie s completely and chronically occluded. The left anterior tibial artery appeared to showed long 80% st enosis in the proximal to midsegment. The left peroneal artery showed 80% stenosis in the proximal se gment. Distally this vessel showed moderate diffuse disease. INTERVENTION The sheath in the right groin was exchanged to a long 45 cm 6 Indian destination sheath was advanced over the aortic mairne with the help of the crossover catheter and the tip was positioned in the prox imal segment of the left superficial femoral artery. The stenosis in the left superficial femoral art papo was crossed with a 0.014 inch LLamas[employer] guidewire. Multiple orbital atherectomy passes were then made within this lesion using 2.0 [employer] orbital atherectomy catheter. Subsequently, this was dilate d with a 5.0 x 40 mm Alpine balloon. Follow-up angiography showed resolution of the stenosis to 0%. H owever, the tibioperoneal segment was found to be completely occluded probably from distal embolizati on. This was then crossed into the left anterior tibial and peroneal arteries with two [employer] guidewires. Multiple inflations were then made in both left anterior tibial and peroneal arteries us ing 2.0 x 1 50 mm followed by 3.0 x 1 20 mm Alpine balloon was. Subsequently, kissing balloon inflati ons were performed within the TP trunk/left PT/left peroneal arteries using 3.0 x 80 mm Alpine and 2. 5 x 30 mm trek balloons. The proximal segment of left anterior tibial artery that showed a significan t lesion was treated successfully with a 3.0 x 23 mm Xience Alpine drug-eluting stent. Again, kissing balloon inflations were performed within both these vessels and the TP trunk using the balloons stat ed above. Final angiography showed resolution of these lesions in the proximal AT/peroneal arteries w ith good flow. Patient tolerated the procedure well. Hemostasis in the right groin was achieved using Angio-Seal. There were no immediate complications. Conclusion 1. Severe bilateral lower extremity peripheral vascular disease as described above. 2. Successful orbital atherectomy/WAIT STAFF to the left superficial femoral artery, successful WAIT STAFF/stent p lacement to left anterior tibial artery and successful balloon WAIT STAFF to the left peroneal artery Recommendations 1. Aspirin 81 mg daily 2. Plavix 75 mg daily 3. Risk factor modification 4. Consider staged atherectomy/WAIT STAFF to the right superficial femoral artery and possible WAIT STAFF to the l eft renal artery at a later date.
== END 2017-04-09 11:55 | disposition home or self-care (01) | DRG 270 ==
LOC: CCL 10:17 → 2 SOUTH 14:39
PROVIDERS: ADMIT Internal Medicine Cardiovascular Disease; ATTEND Internal Medicine Cardiovascular Disease
PROC: B41D1ZZ Fluoroscopy of Aorta and Bilateral Lower Extremity Arteries using Low Osmolar Contrast (ICD-10-PCS; principal; 2017-04-07)
PROC: 04CL3ZZ Extirpation of Matter from Left Femoral Artery, Percutaneous Approach (ICD-10-PCS; 2017-04-07)
PROC: 047L3ZZ Dilation of Left Femoral Artery, Percutaneous Approach (ICD-10-PCS; 2017-04-07)
PROC: 047U3ZZ Dilation of Left Peroneal Artery, Percutaneous Approach (ICD-10-PCS; 2017-04-07)
PROC: 047Q34Z Dilation of Left Anterior Tibial Artery with Drug-eluting Intraluminal Device, Percutaneous Approach (ICD-10-PCS; 2017-04-07)
DX: I73.9 Peripheral vascular disease, unspecified (principal); I50.23 Acute on chronic systolic (congestive) heart failure; J44.0 Chronic obstructive pulmonary disease with (acute) lower respiratory infection; E87.1 Hypo-osmolality and hyponatremia; J44.1 Chronic obstructive pulmonary disease with (acute) exacerbation; S91.302A Unspecified open wound, left foot, initial encounter; J20.9 Acute bronchitis, unspecified; F17.210 Nicotine dependence, cigarettes, uncomplicated; I11.0 Hypertensive heart disease with heart failure; L97.529 Non-pressure chronic ulcer of other part of left foot with unspecified severity; K21.9 Gastro-esophageal reflux disease without esophagitis; Z98.61 Coronary angioplasty status; Z88.1 Allergy status to other antibiotic agents; Z88.8 Allergy status to other drugs, medicaments and biological substances; Z91.018 Allergy to other foods
CPT/HCPCS: 36415; 37225; 37228; 37230; 71010; 75630; 80048; 83880; 85027; 85610; 94640; 94760; C1769; C1771; C1874; C1885; C1892; G0269; J0360; J2250; J2270; J2405; J3010; J3490; J7030; J7620; Q0144; 97110

== ENCOUNTER 2018-01-28 17:35 | Emergency (ER) | payer MEDICARE, OTHER | END 2018-01-28 18:05 | disposition left against medical advice (07) | LOC: ER 17:35 | DX: M79.1 Myalgia (principal); F17.200 Nicotine dependence, unspecified, uncomplicated; Z88.1 Allergy status to other antibiotic agents; Z88.8 Allergy status to other drugs, medicaments and biological substances; Z91.018 Allergy to other foods; Z53.21 Procedure and treatment not carried out due to patient leaving prior to being seen by health care provider ==

== ENCOUNTER 2018-04-17 17:20 | Inpatient (IN) | payer MEDICARE, OTHER ==
[2018-04-17] MEDS: IPRATRPIUM/ALBUTEROL 0.5/2.5MG 3 ML NEBU. NEB (18:16)
[2018-04-17 18:32] LABS: ADD MAN DIFF? NO
[2018-04-17 18:46] LABS: ANION GAP 6 (6-14); BLOOD UREA NITROGEN 9 mg/dL (7-20); BUN/CREATININE RATIO 13 (6-20); CALCIUM 8.3 mg/dL (8.5-10.1); CARBON DIOXIDE 27 mmol/L (21-32); CHLORIDE 90 mmol/L (98-107); CREATININE 0.7 mg/dL (0.6-1.0); GFR 81.1; GLUCOSE 84 mg/dL (70-99); POTASSIUM 4.3 mmol/L (3.5-5.1); SODIUM 123 mmol/L (136-145)
[2018-04-17 18:52] LABS: ALBUMIN/GLOBULIN RATIO 0.9 (1.0-1.7); ALK PHOS 73 U/L (46-116); ALT (SGPT) 12 U/L (14-59); AST (SGOT) 16 U/L (15-37); MAGNESIUM 1.8 mg/dL (1.8-2.4); TOTAL BILIRUBIN 0.3 mg/dL (0.2-1.0); TOTAL PROTEIN 6.4 g/dL (6.4-8.2)
[2018-04-17 18:53] LABS: BASO % 1 % (0-3); EOS # 0.1 x10^3/uL (0.0-0.7); EOS % 2 % (0-3); HEMATOCRIT 29.2 % (36.0-47.0); HEMOGLOBIN 9.7 g/dL (12.0-15.5); LYMPH # 0.9 x10^3/uL (1.0-4.8); LYMPH % 15 % (24-48); MEAN CORPUSCULAR HEMOGLOBIN 28 pg (25-35); MEAN CORPUSCULAR HGB CONC 33 g/dL (31-37); MEAN CORPUSCULAR VOLUME 84 fL (79-100); MONO # 0.5 x10^3/uL (0.0-1.1); MONO % 8 % (0-9); NEUT # 4.5 x10^3uL (1.8-7.7); NEUT % 74 % (31-73); PLATELET COUNT 318 x10^3/uL (140-400); RED BLOOD COUNT 3.47 x10^6/uL (3.50-5.40); RED CELL DISTRIBUTION WIDTH 17.2 % (11.5-14.5)
[2018-04-17 18:59] LABS: TROPONINI < 0.017 ng/mL (0.000-0.055)
[2018-04-17 19:00] LABS: NT-PRO BNP 9566 pg/mL (0-449)
[2018-04-17 19:00] LABS: CKMB MASS 0.8 ng/mL (0.0-3.6); CREATINE KINASE 39 U/L (26-192)
[2018-04-17 19:06] LABS: BILIRUBIN,URINE NEGATIVE (NEG); CLARITY,URINE CLEAR; COLOR,URINE YELLOW; GLUCOSE,URINE NEGATIVE (NEG); NITRITE,URINE NEGATIVE (NEG); PROTEIN,URINE NEGATIVE (NEG-TRACE); UROBILINOGEN,URINE 0.2 mg/dL (0.2 mg/dL)
[2018-04-17 19:14] LABS: BARBITURATES NEG (NEG); BENZODIAZEPINES POS (NEG); CANNABINOIDS NEG (NEG); COCAINE NEG (NEG); METHADONE NEG (NEG); OPIATES POS (NEG); PHENCYCLIDINE NEG (NEG)
[2018-04-17 19:16] LABS: AMPHETAMINE/METHAMPHETAMINE NEG (NEG); ETHANOL, URINE NEG (NEG)
[2018-04-17 19:18] LABS: BACTERIA,URINE FEW /HPF (0-FEW); RBC,URINE 0 /HPF (0-2); SQUAMOUS EPITHELIAL CELL,UR MANY /LPF; WBC,URINE 0 /HPF (0-4)
[2018-04-17] MEDS ORDERED: ACETAMINOPHEN 325 MG TABLET. PO (20:15)
[2018-04-17] MEDS ORDERED: NITROGLYCERIN SUBLINGUAL 0.4 MG BOTTLE OF 25. SL (20:15)
[2018-04-17] MEDS ORDERED: ONDANSETRON PF 4 MG/2 ML VIAL. IV (20:15)
[2018-04-17] MEDS: IV NORMAL SALINE 1000ML BAG 1,000 ML IV ×2 (20:54→23:45)
[2018-04-17] MEDS ORDERED: PROCHLORPERAZINE 5 MG TABLET. PO (22:45)
[2018-04-18] MEDS ORDERED: NON FORMULARY ITEM (Albuterol Sulfate (Albuterol Sulfate Conc Neb Soln) 1 VIAL) NEB
[2018-04-18 00:08] LABS: THYROID STIM HORMONE (TSH) 2.849 uIU/mL (0.358-3.74)
[2018-04-18 05:18] LABS: ADD MAN DIFF? NO
[2018-04-18 05:29] LABS: BASO # 0.1 x10^3/uL (0.0-0.2); BASO % 1 % (0-3); EOS # 0.2 x10^3/uL (0.0-0.7); EOS % 4 % (0-3); HEMATOCRIT 27.9 % (36.0-47.0); HEMOGLOBIN 9.3 g/dL (12.0-15.5); LYMPH # 1.1 x10^3/uL (1.0-4.8); LYMPH % 21 % (24-48); MEAN CORPUSCULAR HEMOGLOBIN 28 pg (25-35); MEAN CORPUSCULAR HGB CONC 33 g/dL (31-37); MEAN CORPUSCULAR VOLUME 84 fL (79-100); MONO # 0.5 x10^3/uL (0.0-1.1); MONO % 10 % (0-9); NEUT # 3.3 x10^3uL (1.8-7.7); NEUT % 64 % (31-73); PLATELET COUNT 293 x10^3/uL (140-400); RED BLOOD COUNT 3.34 x10^6/uL (3.50-5.40); WHITE BLOOD COUNT 5.1 x10^3/uL (4.0-11.0)
[2018-04-18 06:00] LABS: ALBUMIN 2.8 g/dL (3.4-5.0); ALK PHOS 69 U/L (46-116); ALT (SGPT) 12 U/L (14-59); ANION GAP 8 (6-14); AST (SGOT) 15 U/L (15-37); BLOOD UREA NITROGEN 9 mg/dL (7-20); BUN/CREATININE RATIO 15 (6-20); CALCIUM 8.3 mg/dL (8.5-10.1); CARBON DIOXIDE 25 mmol/L (21-32); CHLORIDE 96 mmol/L (98-107); CREATININE 0.6 mg/dL (0.6-1.0); GFR 96.9; GLUCOSE 75 mg/dL (70-99); POTASSIUM 4.3 mmol/L (3.5-5.1); SODIUM 129 mmol/L (136-145); TOTAL BILIRUBIN 0.3 mg/dL (0.2-1.0); TOTAL PROTEIN 5.6 g/dL (6.4-8.2)
[2018-04-18 06:11] LABS: TROPONINI 0.023 ng/mL (0.000-0.055)
[2018-04-18] MEDS: IPRATRPIUM/ALBUTEROL 0.5/2.5MG 3 ML NEBU. NEB ×5 (06:24→19:56)
[2018-04-18] MEDS: BUDESONIDE 0.5 MG/2 ML NEBU. NEB ×2 (06:24→19:56)
[2018-04-18] MEDS: CLOPIDOGREL BISULFATE 75 MG TABLET PO (06:44)
[2018-04-18] MEDS: PANTOPRAZOLE 40 MG TABLET.DR. PO (06:44)
[2018-04-18] MEDS: LISINOPRIL 10 MG TABLET PO ×2 (09:00→20:57)
[2018-04-18] MEDS: ASPIRIN ENTERIC COATED 81 MG TABLET.DR. PO (10:27)
[2018-04-18] MEDS: diazePAM 5 MG TABLET PO ×3 (10:28→20:53)
[2018-04-18] MEDS: METOPROLOL SUCC 24HR ER 25 MG TAB.ER.24H. PO ×2 (10:28→20:53)
[2018-04-18] MEDS: DOCUSATE SODIUM 100 MG CAPSULE. PO (10:29)
[2018-04-18] MEDS: oxyCODONE/APAP 10/325 1 TAB TABLET PO ×3 (10:37→20:57)
[2018-04-18 12:56] LABS: TROPONINI < 0.017 ng/mL (0.000-0.055)
[2018-04-18 14:39] LABS: ANION GAP 8 (6-14); BLOOD UREA NITROGEN 8 mg/dL (7-20); BUN/CREATININE RATIO 11 (6-20); CALCIUM 8.4 mg/dL (8.5-10.1); CARBON DIOXIDE 26 mmol/L (21-32); CHLORIDE 96 mmol/L (98-107); CREATININE 0.7 mg/dL (0.6-1.0); GFR 81.1; GLUCOSE 84 mg/dL (70-99); SODIUM 130 mmol/L (136-145)
[2018-04-18 14:45] LABS: ALBUMIN 2.7 g/dL (3.4-5.0); ALBUMIN/GLOBULIN RATIO 0.9 (1.0-1.7); ALK PHOS 66 U/L (46-116); ALT (SGPT) 12 U/L (14-59); AST (SGOT) 15 U/L (15-37); TOTAL BILIRUBIN 0.3 mg/dL (0.2-1.0); TOTAL PROTEIN 5.8 g/dL (6.4-8.2)
[2018-04-18 17:19] LABS: ANION GAP 6 (6-14); BLOOD UREA NITROGEN 9 mg/dL (7-20); CALCIUM 8.4 mg/dL (8.5-10.1); CARBON DIOXIDE 27 mmol/L (21-32); CHLORIDE 97 mmol/L (98-107); CREATININE 0.6 mg/dL (0.6-1.0); GFR 96.9; GLUCOSE 80 mg/dL (70-99); POTASSIUM 3.9 mmol/L (3.5-5.1); SODIUM 130 mmol/L (136-145)
[2018-04-18 17:29] LABS: TROPONINI < 0.017 ng/mL (0.000-0.055)
[2018-04-18] MEDS ORDERED: IPRATRPIUM/ALBUTEROL 0.5/2.5MG 3 ML NEBU. NEB (21:00)
[2018-04-18] MEDS: ALBUTEROL SULFATE 2.5 MG/3 ML NEBU. NEB (23:59)
[2018-04-19] MEDS: ALBUTEROL SULFATE 2.5 MG/3 ML NEBU. NEB (04:40)
[2018-04-19] MEDS: PANTOPRAZOLE 40 MG TABLET.DR. PO ×2 (05:59→08:51)
[2018-04-19] MEDS: CLOPIDOGREL BISULFATE 75 MG TABLET PO ×2 (05:59→09:18)
[2018-04-19] MEDS: IPRATRPIUM/ALBUTEROL 0.5/2.5MG 3 ML NEBU. NEB ×4 (08:11→20:14)
[2018-04-19] MEDS: BUDESONIDE 0.5 MG/2 ML NEBU. NEB ×2 (08:11→20:14)
[2018-04-19] MEDS: diazePAM 5 MG TABLET PO ×3 (08:50→20:16)
[2018-04-19] MEDS: ASPIRIN ENTERIC COATED 81 MG TABLET.DR. PO (08:50)
[2018-04-19] MEDS: METOPROLOL SUCC 24HR ER 25 MG TAB.ER.24H. PO ×2 (08:50→20:16)
[2018-04-19] MEDS: DOCUSATE SODIUM 100 MG CAPSULE. PO (08:51)
[2018-04-19] MEDS: oxyCODONE/APAP 10/325 1 TAB TABLET PO ×3 (08:55→19:45)
[2018-04-19] MEDS: TOBRAMYCIN PER PHARMACY MC ×2 (13:45→13:55)
[2018-04-19] MEDS: DOXYCYCLINE HYCLATE 100 MG in IV NORMAL SALINE 100ML 100 ML IV ×2 (13:56→20:15)
[2018-04-19] MEDS ORDERED: TOBRAMYCIN SULFATE IV (14:00)
[2018-04-19] MEDS ORDERED: DEXTROSE 5% IV (14:00)
[2018-04-19] MEDS: NORMAL SALINE IV (14:01)
[2018-04-19] MEDS: TOBRAMYCIN SULFATE IV (14:01)
[2018-04-19 17:22] LABS: BASE EXCESS COOX 0 mmol/L (-3-3); CARBON MONOXIDE 0.4 % (0.0-1.9); HCO3 COOX 24 mmol/L (21-28); METHEMOGLOBIN 0.2 % (0.0-1.9); OXYHEMOGLOBIN 94.9 %; PCO2 COOX 37 mmHg (35-46); PH COOX 7.44 (7.35-7.45); PO2 COOX 84 mmHg (65-108); SAT O2 COOX 96 % (92-99); TOTAL HEMOGLOBIN 10.2 g/dL
[2018-04-19 17:25] LABS: FIO2 COOX 28
[2018-04-19] MEDS: ONDANSETRON PF 4 MG/2 ML VIAL. IV (20:14)
[2018-04-19] MEDS: LACTOBACILLUS RHAMNOSUS GG 1 CAPSULE. PO (20:15)
[2018-04-19] MEDS: TOBRAMYCIN RANDOM LEVEL. MC (23:00)
[2018-04-19 23:21] LABS: TOBRAMYCIN, RANDOM 5.2 mcg/mL
[2018-04-20] MEDS: oxyCODONE/APAP 10/325 1 TAB TABLET PO ×3 (00:19→21:24)
[2018-04-20 03:36] LABS: ADD MAN DIFF? NO
[2018-04-20 03:42] LABS: BASO # 0.1 x10^3/uL (0.0-0.2); BASO % 1 % (0-3); EOS # 0.3 x10^3/uL (0.0-0.7); EOS % 4 % (0-3); HEMATOCRIT 29.2 % (36.0-47.0); HEMOGLOBIN 9.6 g/dL (12.0-15.5); LYMPH # 1.1 x10^3/uL (1.0-4.8); LYMPH % 19 % (24-48); MEAN CORPUSCULAR HEMOGLOBIN 28 pg (25-35); MEAN CORPUSCULAR HGB CONC 33 g/dL (31-37); MEAN CORPUSCULAR VOLUME 84 fL (79-100); MONO # 0.5 x10^3/uL (0.0-1.1); MONO % 9 % (0-9); NEUT # 3.9 x10^3uL (1.8-7.7); NEUT % 66 % (31-73); PLATELET COUNT 291 x10^3/uL (140-400); RED BLOOD COUNT 3.46 x10^6/uL (3.50-5.40); RED CELL DISTRIBUTION WIDTH 16.9 % (11.5-14.5); WHITE BLOOD COUNT 5.9 x10^3/uL (4.0-11.0)
[2018-04-20 04:09] LABS: ALBUMIN 2.7 g/dL (3.4-5.0); ALBUMIN/GLOBULIN RATIO 0.9 (1.0-1.7); ALK PHOS 67 U/L (46-116); ALT (SGPT) 12 U/L (14-59); ANION GAP 3 (6-14); AST (SGOT) 16 U/L (15-37); BLOOD UREA NITROGEN 7 mg/dL (7-20); BUN/CREATININE RATIO 10 (6-20); CALCIUM 8.3 mg/dL (8.5-10.1); CARBON DIOXIDE 29 mmol/L (21-32); CHLORIDE 97 mmol/L (98-107); CREATININE 0.7 mg/dL (0.6-1.0); GFR 81.1; GLUCOSE 76 mg/dL (70-99); POTASSIUM 3.9 mmol/L (3.5-5.1); SODIUM 129 mmol/L (136-145); TOTAL BILIRUBIN 0.3 mg/dL (0.2-1.0); TOTAL PROTEIN 5.8 g/dL (6.4-8.2)
[2018-04-20] MEDS: TOBRAMYCIN PER PHARMACY MC (05:15)
[2018-04-20] MEDS: IPRATRPIUM/ALBUTEROL 0.5/2.5MG 3 ML NEBU. NEB ×4 (07:21→19:36)
[2018-04-20] MEDS: BUDESONIDE 0.5 MG/2 ML NEBU. NEB ×2 (07:21→19:36)
[2018-04-20] MEDS: CLOPIDOGREL BISULFATE 75 MG TABLET PO (08:38)
[2018-04-20] MEDS: DOCUSATE SODIUM 100 MG CAPSULE. PO (08:38)
[2018-04-20] MEDS: PANTOPRAZOLE 40 MG TABLET.DR. PO (08:38)
[2018-04-20] MEDS: METOPROLOL SUCC 24HR ER 25 MG TAB.ER.24H. PO (08:39)
[2018-04-20] MEDS: ASPIRIN ENTERIC COATED 81 MG TABLET.DR. PO (08:39)
[2018-04-20] MEDS: diazePAM 5 MG TABLET PO ×3 (08:39→21:05)
[2018-04-20] MEDS: LISINOPRIL 10 MG TABLET PO (08:39)
[2018-04-20] MEDS: LACTOBACILLUS RHAMNOSUS GG 1 CAPSULE. PO ×2 (08:42→21:00)
[2018-04-20] MEDS: DOXYCYCLINE HYCLATE 100 MG in IV NORMAL SALINE 100ML 100 ML IV ×2 (09:32→21:25)
[2018-04-20] MEDS ORDERED: hydrOXYzine PAMOATE 25 MG CAPSULE PO (10:45)
[2018-04-20] MEDS: METOPROLOL TART IMMED RELEASE 25 MG TABLET. PO (21:06)
[2018-04-20] MEDS: ONDANSETRON PF 4 MG/2 ML VIAL. IV (23:43)
[2018-04-21 01:02] LABS: CHOLESTEROL 131 mg/dL (0-200); CHOLESTEROL/HDL RATIO 3.7; HDLC 35 mg/dL (40-60); LDLC 86 mg/dL (0-100); NON-HDL CHOLESTEROL 96 mg/dL (0-129); TRIGLYCERIDES 49 mg/dL (0-150); VLDLC 10 mg/dL (0-40)
[2018-04-21] MEDS: NORMAL SALINE IV (02:41)
[2018-04-21] MEDS: TOBRAMYCIN SULFATE IV (02:41)
[2018-04-21 06:06] LABS: ANION GAP 3 (6-14); BLOOD UREA NITROGEN 8 mg/dL (7-20); CALCIUM 8.5 mg/dL (8.5-10.1); CARBON DIOXIDE 31 mmol/L (21-32); CHLORIDE 98 mmol/L (98-107); CREATININE 0.7 mg/dL (0.6-1.0); GFR 81.1; GLUCOSE 72 mg/dL (70-99); SODIUM 132 mmol/L (136-145)
[2018-04-21] MEDS: IPRATRPIUM/ALBUTEROL 0.5/2.5MG 3 ML NEBU. NEB ×2 (08:08→11:42)
[2018-04-21] MEDS: BUDESONIDE 0.5 MG/2 ML NEBU. NEB (08:08)
[2018-04-21] MEDS: TOBRAMYCIN PER PHARMACY MC (08:27)
[2018-04-21] MEDS: DOCUSATE SODIUM 100 MG CAPSULE. PO (08:56)
[2018-04-21] MEDS: LISINOPRIL 10 MG TABLET PO (08:56)
[2018-04-21] MEDS: PANTOPRAZOLE 40 MG TABLET.DR. PO (08:56)
[2018-04-21] MEDS: CLOPIDOGREL BISULFATE 75 MG TABLET PO (08:57)
[2018-04-21] MEDS: diazePAM 5 MG TABLET PO ×2 (08:57→13:41)
[2018-04-21] MEDS: ASPIRIN ENTERIC COATED 81 MG TABLET.DR. PO (08:57)
[2018-04-21] MEDS: METOPROLOL TART IMMED RELEASE 25 MG TABLET. PO (08:57)
[2018-04-21] MEDS: oxyCODONE/APAP 10/325 1 TAB TABLET PO ×2 (08:58→13:42)
[2018-04-21] MEDS: LACTOBACILLUS RHAMNOSUS GG 1 CAPSULE. PO (09:00)
[2018-04-21] MEDS: DOXYCYCLINE HYCLATE 100 MG in IV NORMAL SALINE 100ML 100 ML IV (09:04)
[2018-04-21 10:35] LABS: RETIC COUNT 0.9 % (0.5-2.5)
== END 2018-04-21 15:39 | disposition left against medical advice (07) | DRG 291 ==
LOC: ER 17:20 → 2 SOUTH 20:06
DX: I11.0 Hypertensive heart disease with heart failure (principal); J18.9 Pneumonia, unspecified organism; E87.1 Hypo-osmolality and hyponatremia; J44.0 Chronic obstructive pulmonary disease with (acute) lower respiratory infection; I48.1 Persistent atrial fibrillation; I48.92 Unspecified atrial flutter; I48.91 Unspecified atrial fibrillation; I50.43 Acute on chronic combined systolic (congestive) and diastolic (congestive) heart failure; J44.9 Chronic obstructive pulmonary disease, unspecified; D63.8 Anemia in other chronic diseases classified elsewhere; E78.5 Hyperlipidemia, unspecified; F17.210 Nicotine dependence, cigarettes, uncomplicated; I34.0 Nonrheumatic mitral (valve) insufficiency; I50.9 Heart failure, unspecified; I73.9 Peripheral vascular disease, unspecified; K21.9 Gastro-esophageal reflux disease without esophagitis; Z90.710 Acquired absence of both cervix and uterus; Z96.649 Presence of unspecified artificial hip joint; Z99.81 Dependence on supplemental oxygen; M19.90 Unspecified osteoarthritis, unspecified site; Z53.21 Procedure and treatment not carried out due to patient leaving prior to being seen by health care provider; Z88.8 Allergy status to other drugs, medicaments and biological substances; Z88.1 Allergy status to other antibiotic agents; Z91.02 Food additives allergy status; Z90.49 Acquired absence of other specified parts of digestive tract
CPT/HCPCS: 36415; 71045; 80048; 80053; 80061; 80200; 80307; 81001; 82533; 82553; 82805; 83735; 83880; 84300; 84443; 84484; 85025; 85045; 87070; 87205; 93005; 94640; 94760; 96361; 97162-GP; 97166-GO; 99285; 99285-25; J2405; J3490; J7030; J7613; J7620; J7626

== ENCOUNTER 2018-06-22 13:23 | Emergency (ER) | payer MEDICARE, OTHER ==
[~2018-06-22] VITALS: Ht 144.8 cm; Wt 47.6 kg
[~2018-06-22 13:23] MED LIST changes: +ALBU2.5V14 NEB; +ASPI-482 PO; +AZIT250T PO; +BECL8.7A6 IH; +CLIN300C3 PO; +CLOP75TA PO; +DIAZ5TAB4 PO; +DOCU100C28 PO; +IPRA4AER IH; +LANS30CA66 PO; +LISI10TA2 PO; +METO-239 PO; +OMEP20TA8 PO; +OXYC-411 PO; +PROC10TA57 PO; +SIME80TA14 PO
--- NOTE | 2018-06-22 13:46 | PHYS DOC ---
Past Medical History Past Medical History: A-Fib, COPD, Unknown, Other Additional Past Medical Histor: PT POOR HISTROIAN Past Surgical History: Other Additional Past Surgical Histo: UNABLE TO OBTAIN Alcohol Use: None Drug Use: None Adult General Chief Complaint Chief Complaint: CHEST PAIN HPI HPI 77 y/o female presents to ER via EMS for c/o CP- EMS reported they had given her 1 nitro en route but were unable to establish IV and pt had no teeth so no aspirin was given. On arrival to 21 pt denies any CP/SOA reporting she just doesn't feel good. She has nonprod. coarse cough denying any fever/chills. She reports she had decreased appetite today. Pt with questioning is not cooperative and at times rude with responses. She is A&Ox3 speaking in full clear sentences. She reports she lives at home. Review of Systems Review of Systems Constitutional: Denies fever or chills [] Eyes: Denies change in visual acuity, redness, or eye pain [] HENT: Denies nasal congestion or sore throat [] Respiratory: Denies cough or shortness of breath [] Cardiovascular: No additional information not addressed in HPI [] GI: Denies abdominal pain, nausea, vomiting, bloody stools or diarrhea [] : Denies dysuria or hematuria [] Musculoskeletal: Denies back pain or joint pain [] Integument: Denies rash or skin lesions [] Neurologic: Denies headache, focal weakness or sensory changes [] Endocrine: Denies polyuria or polydipsia [] All other systems were reviewed and found to be within normal limits, except as documented in this note. Allergies Allergies Allergies Coded Allergies Type Severity Reaction Last Updated Verified Cephalosporins Allergy Severe Anaphylaxis 04/07/17 Yes propoxyphene Allergy Severe Anaphylaxis 04/08/17 Yes cephalexin Allergy Intermediate Itching 04/08/17 Yes ciprofloxacin Allergy Intermediate 04/08/17 Yes ketorolac Allergy Intermediate 04/08/17 Yes mushroom Allergy Intermediate Itching 04/08/17 Yes sumatriptan Allergy Intermediate 04/08/17 Yes diphenhydramine Allergy Mild Anxiety 04/08/17 Yes levofloxacin Adverse Reaction Intermediate Itching 04/20/18 Yes Physical Exam Physical Exam Constitutional: Well developed, well nourished, no acute distress, non-toxic appearance. [] HENT: Normocephalic, atraumatic, bilateral external ears normal, oropharynx moist, no oral exudates, nose normal. [] Eyes: PERRLA, EOMI, conjunctiva normal, no discharge. [] Neck: Normal range of motion, no tenderness, supple, no stridor. [] Cardiovascular:Heart rate regular rhythm, no murmur [] Lungs & Thorax: Bilateral breath sounds clear to auscultation [] Abdomen: Bowel sounds normal, soft, no tenderness, no masses, no pulsatile masses. [] Skin: Warm, dry, no erythema, no rash. [] Back: No tenderness, no CVA tenderness. [] Extremities: No tenderness, no cyanosis, no clubbing, ROM intact, no edema. [] Neurologic: Alert and oriented X 3, normal motor function, normal sensory function, no focal deficits noted. [] Psychologic: Affect normal, judgement normal, mood normal. [] Current Patient Data Vital Signs Vital Signs Date Time Temp Pulse Resp B/P (MAP) Pulse Ox O2 Delivery O2 Flow Rate FiO2 06/22/18 14:28 77 18 129/68 (88) 94 Nasal Cannula 2.0 06/22/18 13:36 98.0 98.0 Lab Values Laboratory Tests Test 06/22/18 14:05 White Blood Count 5.5 x10^3/uL (4.0-11.0) Red Blood Count 3.57 x10^6/uL (3.50-5.40) Hemoglobin 9.4 g/dL (12.0-15.5) L Hematocrit 29.5 % (36.0-47.0) L Mean Corpuscular Volume 83 fL (79-100) Mean Corpuscular Hemoglobin 26 pg (25-35) Mean Corpuscular Hemoglobin Concent 32 g/dL (31-37) Red Cell Distribution Width 19.7 % (11.5-14.5) H Platelet Count 305 x10^3/uL (140-400) Neutrophils (%) (Auto) 64 % (31-73) Lymphocytes (%) (Auto) 25 % (24-48) Monocytes (%) (Auto) 8 % (0-9) Eosinophils (%) (Auto) 2 % (0-3) Basophils (%) (Auto) 1 % (0-3) Neutrophils # (Auto) 3.6 x10^3uL (1.8-7.7) Lymphocytes # (Auto) 1.4 x10^3/uL (1.0-4.8) Monocytes # (Auto) 0.4 x10^3/uL (0.0-1.1) Eosinophils # (Auto) 0.1 x10^3/uL (0.0-0.7) Basophils # (Auto) 0.0 x10^3/uL (0.0-0.2) Sodium Level 124 mmol/L (136-145) L Potassium Level 4.0 mmol/L (3.5-5.1) Chloride Level 92 mmol/L (98-107) L Carbon Dioxide Level 24 mmol/L (21-32) Anion Gap 8 (6-14) Blood Urea Nitrogen 14 mg/dL (7-20) Creatinine 0.7 mg/dL (0.6-1.0) Estimated GFR (Cockcroft-Gault) 81.1 BUN/Creatinine Ratio 20 (6-20) Glucose Level 74 mg/dL (70-99) Calcium Level 8.9 mg/dL (8.5-10.1) Magnesium Level Pending Total Bilirubin Pending Aspartate Amino Transferase (AST) Pending Alanine Aminotransferase (ALT) Pending Alkaline Phosphatase Pending Troponin I Quantitative < 0.017 ng/mL (0.000-0.055) Total Protein Pending Albumin Pending Albumin/Globulin Ratio Pending Laboratory Tests 06/22/18 14:05 Laboratory Tests 06/22/18 14:05 EKG EKG EKG obtained at 1330 on 06/22/[address] Pressley Sinus rhythm Ventricular/atrial premature complexes Leftward axis No acute ST elevation/STEMI Vent rate 81 Radiology/Procedures Radiology/Procedures [] Course & Med Decision Making Course & Med Decision Making Pertinent Labs and Imaging studies reviewed. (See chart for details) 1415: Lab attempted to obtain blood work and were unsuccessful. Patient is refusing any additional attempts at blood test and is refusing any additional treatment. Patient states as soon as her gets to the emergency department she will sign out AMA with no further treatment or care. Patient is in no visible distress at this time. Dragon Disclaimer Dragon Disclaimer This electronic medical record was generated, in whole or in part, using a voice recognition dictation system. Departure Departure Impression: Primary Impression: Left against medical advice Disposition: 07 AGAINST MEDICAL ADVICE Referrals: BHAVNA HARRIS MD (PCP) Patient Instructions: Discharge Against Medical Advice Additional Instructions: If symptoms worsen and you would like further care please return to Emergency Department- or follow-up with primary doctor for care. MARY SULLIVAN APRN Jun 22, 2018 13:46
[2018-06-22 14:19] LABS: BASO % 1 % (0-3); EOS # 0.1 x10^3/uL (0.0-0.7); EOS % 2 % (0-3); HEMATOCRIT 29.5 % (36.0-47.0); HEMOGLOBIN 9.4 g/dL (12.0-15.5); LYMPH # 1.4 x10^3/uL (1.0-4.8); LYMPH % 25 % (24-48); MEAN CORPUSCULAR HEMOGLOBIN 26 pg (25-35); MEAN CORPUSCULAR HGB CONC 32 g/dL (31-37); MEAN CORPUSCULAR VOLUME 83 fL (79-100); MONO # 0.4 x10^3/uL (0.0-1.1); MONO % 8 % (0-9); NEUT # 3.6 x10^3uL (1.8-7.7); NEUT % 64 % (31-73); PLATELET COUNT 305 x10^3/uL (140-400); RED BLOOD COUNT 3.57 x10^6/uL (3.50-5.40); RED CELL DISTRIBUTION WIDTH 19.7 % (11.5-14.5); WHITE BLOOD COUNT 5.5 x10^3/uL (4.0-11.0)
[2018-06-22 14:28] VITALS: BP 129/68
--- NOTE | 2018-06-22 14:34 | EKG ---
[facility] [address] [place] [address] Test Date: 2018-06-22 Test Time: 13:30:47 Pat Name: SARY MASON Department: Room: Gender: F Gas Charger: : 1940 Requested By: MARY SULLIVAN Order Number: [id number] Reading MD: Hi Browning MD Measurements Intervals Innis Rate: 81 P: 0 [place]: 106 QRS: 0 QRSD: 86 T: 7 QT: 376 QTc: 437 Interpretive Statements ATRIAL FIBRILLATION WITH CONTROLLED VENTRICULAR RESPONSE NON-SPECIFIC ST/T CHANGES Electronically Signed On 06-24-2018 15:20:21 CDT by Hi Browning MD
--- NOTE | 2018-06-22 14:41 | RAD ---
EXAM: CHEST 1 VIEW History: Chest pain COMPARISON: 05/14/2018 TECHNIQUE: Single portable radiograph of the chest FINDINGS: Low lung volumes and technique accentuates heart size and pulmonary vascularity. Mild cardiomegaly. Mild prominent appearing bilateral interstitial lung markings. The costophrenic sulci are clear and well demarcated. IMPRESSION: Mild prominent appearing bilateral interstitial lung markings likely mild congestive changes or chronic interstitial changes. Electronically signed by: Aj Rosario MD (06/22/2018 2:37 PM) [id number]
[2018-06-22 14:45] LABS: CALCIUM 8.9 mg/dL (8.5-10.1); CREATININE 0.7 mg/dL (0.6-1.0); GFR 81.1
[2018-06-22 15:02] LABS: ALBUMIN/GLOBULIN RATIO 0.8 (1.0-1.7); MAGNESIUM 1.8 mg/dL (1.8-2.4); TOTAL BILIRUBIN 0.3 mg/dL (0.2-1.0); TOTAL PROTEIN 6.7 g/dL (6.4-8.2)
== END 2018-06-22 15:12 | disposition left against medical advice (07) ==
LOC: ER 13:23
DX: R05 Cough (principal); J44.9 Chronic obstructive pulmonary disease, unspecified; I48.91 Unspecified atrial fibrillation; Z88.1 Allergy status to other antibiotic agents; Z88.8 Allergy status to other drugs, medicaments and biological substances
CPT/HCPCS: 36415; 71045; 80053; 82553; 83735; 83880; 84484; 85025; 93005; 99285-25